=== PATIENT | female | born 1965 | race Caucasian/White ===

== ENCOUNTER 2018-02-25 08:25 | Day surgery (SDC) | payer OTHER ==
[2018-02-25] MEDS ORDERED: LIDOCAINE 2% INJ 100 MG/5 ML SDV (FOR ANES.) As Ordered (10:06)
[2018-02-25] MEDS ORDERED: PROPOFOL 200 MG/20 ML VIAL As Ordered (10:06)
== END 2018-02-25 10:42 | disposition home or self-care (01) ==
LOC: M OPP 08:25
DX: Z12.11 Encounter for screening for malignant neoplasm of colon (principal); Z80.0 Family history of malignant neoplasm of digestive organs; K64.8 Other hemorrhoids; I10 Essential (primary) hypertension; E03.9 Hypothyroidism, unspecified; L40.9 Psoriasis, unspecified; F32.9 Major depressive disorder, single episode, unspecified; K21.9 Gastro-esophageal reflux disease without esophagitis; R51 Headache; Z87.442 Personal history of urinary calculi; Z79.82 Long term (current) use of aspirin; Z79.899 Other long term (current) drug therapy
CPT/HCPCS: 45378

== ENCOUNTER → 2019-06-04 | Outpatient (CLI) | payer OTHER ==
[~2019-06-04] MED LIST: ASPI81TA85 PO; CETI10CH PO; FAMO40TA3 PO; FLUO40CA PO; LEVO25TA5 PO; LOSA50TA88 PO; MIRE1IUD IU; MULTCAP PO; VITA200015 PO
--- NOTE | 2019-06-04 13:02 | REP ---
Chest x-ray: Two views. History: Cough. . Comparison study: No comparison study . Findings: The lungs are well inflated and free of infiltrate. The pleural angles are sharp. The heart size is normal. Pulmonary vasculature is not increased. No significant bony abnormality is seen. Impression: Negative chest x-ray. Electronically Signed by Albino Hood MD 06/04/2019 12:53 P
== END ==
LOC: M LRY 12:38
PROVIDERS: ATTEND Physician Assistant
DX: R05 Cough (principal)